=== PATIENT | female | born 1935 | race Caucasian/White ===

== ENCOUNTER → 2019-05-02 | Outpatient (CLI) | payer MEDICARE | END | disposition home or self-care (01) | LOC: LAB 08:54 → LAB SHORT 08:54 | DX: N39.0 Urinary tract infection, site not specified (principal) | CPT/HCPCS: 87077; 87086; 87186 ==

== ENCOUNTER 2023-04-28 06:39 | Day surgery (SDC) | payer MEDICARE, OTHER ==
[~2023-04-28] VITALS: Ht 152.4 cm; Wt 97.0 kg
[2023-04-28] VITALS (7 sets, daily range): BP systolic 134–173; BP diastolic 74–84
[~2023-04-28 06:39] MED LIST: AMIT50 PO; ASPIR 8181 M1 PO; B-12500 MC2 PO; CENTRUM SILVER1 EAC2 PO; CIPR500 PO; Cipro500 MG PO; DONEPEZIL HCL10 MG; Flagyl500 MG PO; Gas-X125 MG PO; Hydroxyzine HCl50 MG PO; LEVO-T50 MCG PO; LIDO700A20 TOP; LOSA50 PO; MELO7.5 PO; MEMA5TAB PO; METR500 PO; MOTION RELIEF25 MG PO; NAPR220 PO; OMEP20ER PO; PRAV20 PO; PRAVASTATIN SOD40 MG PO; Pravastatin Sod80 MG PO; Primidone50 MG PO; VITAMIN D31000 UNI1 PO; VITAMIN D5000 UNIT
[2023-04-28] MEDS ORDERED: APHEN325 M1 PO (07:22)
--- NOTE | 2023-04-28 09:12 | NUR ---
PT BACK TO RECOVERY ROOM VIA BED AFTER PROCEDURE. SLEEPING, BUT ROUSES EASILY TO VERBAL STIMULI. RIGHT RADIAL SITE WITH PRELUDE BAND AND SPLINT IN PLACE, FIRM SWELLING AND BRUISING NOTED PROXIMAL TO PRELUDE BAND. 10 MINUTES MANUAL PRESSURE HELD AND PRESSURE DRESSING PLACED PROXIMAL TO PRELUDE BAND. PT DENIES DISCOMFORT AT THE SITE.
--- NOTE | 2023-04-28 09:44 | NUR ---
PT CONTINUES TO SLEEP, RIGHT WRIST IS NOW SOFT TO PALPATION AFTER PRESSURE DRESSING AND MANUAL PRESSURE TO SITE. PRESSURE DRESSING REAPPLIED TO PREVENT FURTHER SWELLING, WILL LEAVE IN PLACE UNTIL PT DC HOME.
--- NOTE | 2023-04-28 10:16 | NUR ---
RIGHT RADIAL PRELUDE BAND HAS BEEN FULLY DEFLATED. SITE CONTINUES TO HAVE SOFT SWELLING AND BRUISING PROXIMAL TO BAND, BUT DENIES PAIN TO THE AREA. CALL LIGHT IN REACH, DAUGHTER REMAINS AT BEDSIDE.
--- NOTE | 2023-04-28 10:34 | NUR ---
DR DOWNING AT BEDSIDE SPEAKING WITH PT AND FAMILY ABOUT ANGIOGRAM RESULTS AND PLAN OF CARE.
--- NOTE | 2023-04-28 11:25 | NUR ---
IV DC'D, CATH INTACT. PT AND DAUGHTER GIVEN DC INSTRUCTIONS AND FOLLOW UP INFO, VERBALIZED UNDERSTANDING. RIGHT RADIAL SITE WITH CLOTH DOT DRESSING AND SPLINT IN PLACE, SOME SOFT SWELLING AND BRUISING PRESENT, PT DENIES ANY DISCOMFORT TO THE AREA. OUT TO CAR VIA WHEELCHAIR, ACCOMPANIED BY DAUGHTER.
== END 2023-04-28 11:15 | disposition home or self-care (01) ==
LOC: MHTC 06:39
PROC: B2111ZZ Fluoroscopy of Multiple Coronary Arteries using Low Osmolar Contrast (ICD-10-PCS; principal; 2023-04-28)
DX: I35.0 Nonrheumatic aortic (valve) stenosis (principal); I25.10 Atherosclerotic heart disease of native coronary artery without angina pectoris; I25.2 Old myocardial infarction; I10 Essential (primary) hypertension; E78.5 Hyperlipidemia, unspecified; E11.9 Type 2 diabetes mellitus without complications; E03.9 Hypothyroidism, unspecified; F03.90 Unspecified dementia, unspecified severity, without behavioral disturbance, psychotic disturbance, mood disturbance, and anxiety; Z86.73 Personal history of transient ischemic attack (TIA), and cerebral infarction without residual deficits; Z88.6 Allergy status to analgesic agent; Z88.1 Allergy status to other antibiotic agents; Z79.82 Long term (current) use of aspirin; Z79.890 Hormone replacement therapy; Z79.899 Other long term (current) drug therapy
CPT/HCPCS: 76937; 93454; 99152; C1769; C1887; C1894; J1644; J2250; J3010; J7030; J7050; Q9967

== ENCOUNTER 2023-08-10 11:15 | Emergency (ER) | payer MEDICARE, OTHER ==
[~2023-08-10] VITALS: Ht 165.1 cm; Wt 99.8 kg
[~2023-08-10 11:15] MED LIST changes: +APHEN325 M1 PO
[2023-08-10 11:40] LABS: Calcium, Ionized (POC) 1.14 mmol/L (1.10-1.46); Chloride (POC) 104 mmol/L (98-108); Creatinine (POC) 0.6 mg/dL (0.6-1.0); Glucose (ISTAT POC) 207 mg/dL (70-99); Hemoglobin (POC) 11.6 g/dL (12.0-16.0); Potassium (POC) 4.2 mmol/L (3.5-5.5); Sodium (POC) 136 mmol/L (135-148); Total CO2 (POC) 22 mmol/L (21-32)
[2023-08-10 12:08] LABS: Albumin, Blood 3.3 g/dL (3.4-5.0); Bilirubin, Total 0.4 mg/dL (0.1-1.0); Bun/Creatinine Ratio 21.8 (12.0-20.0); Calcium, Blood 8.9 mg/dL (8.5-10.1); Creatinine, Blood 0.64 mg/dL (0.40-1.00); Globulin, Blood 3.4 g/dL (2.2-4.0); Potassium, Blood 4.1 mmol/L (3.5-5.5); Total Protein, Blood 6.7 g/dL (6.4-8.2)
[2023-08-10 12:14] LABS: BASOPHILS ABSOLUTE AUTO 0.04 K/mm3 (0.00-0.23); BASOPHILS PERCENT AUTO 1 % (0-2); EOSINOPHILS ABSOLUTE AUTO 0.17 K/mm3 (0.00-0.68); EOSINOPHILS PERCENT AUTO 2 % (0-6); Hematocrit 34.3 % (33.0-51.0); Hemoglobin 11.3 g/dL (11.5-16.0); IMMATURE GRAN ABSOLUTE AUTO 0.03 K/mm3 (0.00-0.10); IMMATURE GRAN PERCENT AUTO 0 % (0-1); LYMPHOCYTES ABSOLUTE AUTO 2.56 K/mm3 (0.84-5.20); LYMPHOCYTES PERCENT AUTO 35 % (21-46); MONOCYTES ABSOLUTE AUTO 0.58 K/mm3 (0.16-1.47); MONOCYTES PERCENT AUTO 8 % (4-13); Mean Corpuscular HGB 33.4 pg (26.0-34.0); Mean Corpuscular HGB Conc 32.9 g/dL (31.5-36.5); Mean Corpuscular Volume 102 fL (80-100); Mean Platelet Volume 9.1 fL (9.1-12.4); NEUTROPHILS ABSOLUTE AUTO 3.85 K/mm3 (1.96-9.15); NEUTROPHILS PERCENT AUTO 53 % (41-73); Platelet Count 193 K/mm3 (150-400); RDW Coefficient Variation 12.9 % (11.7-14.2); RDW Standard Deviation 47.9 fL (35.1-46.3); Red Blood Cell Count 3.38 M/mm3 (3.80-5.20); White Blood Cell Count 7.23 K/mm3 (4.00-11.30)
[2023-08-10 13:00] VITALS: BP 149/62
[2023-08-11 18:20] LABS: Calcium, Ionized (POC) 1.02 mmol/L (1.10-1.46); Chloride (POC) 109 mmol/L (98-108); Creatinine (POC) 1.3 mg/dL (0.6-1.0); Glucose (ISTAT POC) 106 mg/dL (70-99); Hemoglobin (POC) 8.5 g/dL (12.0-16.0); Potassium (POC) 4.2 mmol/L (3.5-5.5); Total CO2 (POC) 27 mmol/L (21-32)
[2023-08-15 11:47] LABS: Sodium (POC) 139 mmol/L (135-148)
== END 2023-08-10 14:07 | disposition short-term general hospital (02) ==
LOC: ER 11:15
PROVIDERS: Emergency Medicine
DX: I44.2 Atrioventricular block, complete (principal); Z88.8 Allergy status to other drugs, medicaments and biological substances; Z87.891 Personal history of nicotine dependence; Z79.82 Long term (current) use of aspirin; Z79.1 Long term (current) use of non-steroidal anti-inflammatories (NSAID); Z79.899 Other long term (current) drug therapy
CPT/HCPCS: 33210; 36556; 71045; 80047; 80053; 82947; 84484; 85014; 85025; 93005; 93010; 99291-25; 99292; C1751

== ENCOUNTER 2023-12-23 21:22 | Observation (INO) | payer MEDICARE, OTHER ==
[~2023-12-23] VITALS: Ht 157.5 cm; Wt 97.7 kg
[~2023-12-23 21:22] MED LIST changes: -DONEPEZIL HCL10 MG; +DONEPEZIL HCL10 MG PO
[2023-12-23] MEDS ORDERED: Ondansetron HCl 2 MG / ML 2ML Vial IV ONE (22:15)
[2023-12-23 22:19] LABS: Influenza A, PCR NEGATIVE (NEGATIVE); Influenza B, PCR NEGATIVE (NEGATIVE); Resp Syncytial Virus, PCR NEGATIVE (NEGATIVE)
[2023-12-23 22:23] LABS: BASOPHILS ABSOLUTE AUTO 0.04 K/mm3 (0.00-0.23); BASOPHILS PERCENT AUTO 1 % (0-2); EOSINOPHILS ABSOLUTE AUTO 0.14 K/mm3 (0.00-0.68); EOSINOPHILS PERCENT AUTO 2 % (0-6); Hematocrit 34.6 % (33.0-51.0); IMMATURE GRAN ABSOLUTE AUTO 0.03 K/mm3 (0.00-0.10); IMMATURE GRAN PERCENT AUTO 0 % (0-1); LYMPHOCYTES PERCENT AUTO 12 % (21-46); MONOCYTES ABSOLUTE AUTO 0.58 K/mm3 (0.16-1.47); MONOCYTES PERCENT AUTO 7 % (4-13); Mean Corpuscular HGB 34.3 pg (26.0-34.0); Mean Corpuscular HGB Conc 34.7 g/dL (31.5-36.5); Mean Corpuscular Volume 99 fL (80-100); Mean Platelet Volume 9.7 fL (9.1-12.4); NEUTROPHILS PERCENT AUTO 79 % (41-73); Platelet Count 198 K/mm3 (150-400); RDW Coefficient Variation 13.6 % (11.7-14.2); RDW Standard Deviation 49.2 fL (35.1-46.3); White Blood Cell Count 8.69 K/mm3 (4.00-11.30)
[2023-12-23 22:51] LABS: Albumin, Blood 3.7 g/dL (3.4-5.0); Albumin/Globulin Ratio 1.1 (0.8-1.8); Bilirubin, Total 0.7 mg/dL (0.1-1.0); Bun/Creatinine Ratio 14.5 (12.0-20.0); Calcium, Blood 8.8 mg/dL (8.5-10.1); Creatinine, Blood 0.83 mg/dL (0.40-1.00); Globulin, Blood 3.4 g/dL (2.2-4.0); Potassium, Blood 4.3 mmol/L (3.5-5.5); Total Protein, Blood 7.1 g/dL (6.4-8.2)
[2023-12-23] MEDS ORDERED: VALS80 PO (23:03)
[2023-12-23] MEDS ORDERED: Carvedilol12.5 MG PO (23:04)
[2023-12-23] MEDS ORDERED: CENTRUM SILVER1 EAC2 PO (23:08)
[2023-12-23] MEDS ORDERED: B-12500 MC2 PO (23:09)
[2023-12-23] MEDS ORDERED: Alphagan P5 ML BOTHEYES (23:10)
[2023-12-23] MEDS ORDERED: KETO15TC TOP (23:10)
[2023-12-24 00:10] LABS: SARS-Cov-2 (COVID-19) PCR, MMC POSITIVE (NEGATIVE)
[2023-12-24] MEDS ORDERED: Melatonin 3 MG Tab PO PRN (02:10)
[2023-12-24] MEDS ORDERED: Albuterol 2.5 MG/3 ML VIAL INH PRN (02:15)
[2023-12-24] MEDS ORDERED: Guaifenesin/Dextromethorphan Syrup 5 ML UDC PO PRN (02:15)
[2023-12-24] MEDS ORDERED: Acetaminophen 325 MG TABLET PO PRN (02:15)
[2023-12-24] MEDS ORDERED: Ondansetron HCl 2 MG / ML 2ML Vial IV PRN (02:15)
[2023-12-24] MEDS ORDERED: Remdesivir (EUA) 200 MG in NS 250 ML IV ONE (02:50)
[2023-12-24 03:52] VITALS: BP 115/52
--- NOTE | 2023-12-24 05:01 | NUR ---
NOC SUMMARY- PT ARRIVED TO ROOM IN NO DISTRESS. PT IS BREATHING EASY ON RA. CONTINOUS SPO2 IS ON PT. SPO2 >90%. PT DENIES SOB OR CX PAIN. PT MEDICATED FOR COUGH. PT INCONTINENT W/ BRIEF ON. PT AOX2, PT FORGETFUL. CALL LIGHT IN REACH AND BED ALARM ON.
[2023-12-24 05:33] LABS: BASOPHILS ABSOLUTE AUTO 0.03 K/mm3 (0.00-0.23); BASOPHILS PERCENT AUTO 0 % (0-2); EOSINOPHILS ABSOLUTE AUTO 0.04 K/mm3 (0.00-0.68); EOSINOPHILS PERCENT AUTO 1 % (0-6); Hematocrit 32.7 % (33.0-51.0); Hemoglobin 10.8 g/dL (11.5-16.0); IMMATURE GRAN ABSOLUTE AUTO 0.03 K/mm3 (0.00-0.10); IMMATURE GRAN PERCENT AUTO 0 % (0-1); LYMPHOCYTES ABSOLUTE AUTO 1.27 K/mm3 (0.84-5.20); LYMPHOCYTES PERCENT AUTO 18 % (21-46); MONOCYTES ABSOLUTE AUTO 0.39 K/mm3 (0.16-1.47); MONOCYTES PERCENT AUTO 6 % (4-13); Mean Corpuscular Volume 103 fL (80-100); Mean Platelet Volume 9.5 fL (9.1-12.4); NEUTROPHILS ABSOLUTE AUTO 5.23 K/mm3 (1.96-9.15); NEUTROPHILS PERCENT AUTO 75 % (41-73); Platelet Count 165 K/mm3 (150-400); RDW Coefficient Variation 13.7 % (11.7-14.2); RDW Standard Deviation 52.5 fL (35.1-46.3); Red Blood Cell Count 3.18 M/mm3 (3.80-5.20); White Blood Cell Count 6.99 K/mm3 (4.00-11.30)
[2023-12-24 05:40] LABS: Albumin, Blood 3.1 g/dL (3.4-5.0); Bilirubin, Total 0.6 mg/dL (0.1-1.0); Bun/Creatinine Ratio 13.6 (12.0-20.0); Calcium, Blood 8.3 mg/dL (8.5-10.1); Creatinine, Blood 0.95 mg/dL (0.40-1.00); Potassium, Blood 4.6 mmol/L (3.5-5.5); Total Protein, Blood 6.1 g/dL (6.4-8.2)
[2023-12-24] MEDS ORDERED: Omeprazole 20 MG CapCR PO SCH (06:00)
[2023-12-24] MEDS ORDERED: Levothyroxine Sodium 0.05 MG Tab PO SCH (06:00)
[2023-12-24 07:43] VITALS: BP 142/61
[2023-12-24] MEDS ORDERED: Cyanocobalamin 500 MCG Tab PO SCH (09:00)
[2023-12-24] MEDS ORDERED: Aspirin 81 MG Chew PO SCH (09:00)
[2023-12-24] MEDS ORDERED: Memantine HCL 5 MG Tab PO SCH (09:00)
[2023-12-24] MEDS ORDERED: dexAMETHasone 4 MG TAB PO SCH (09:00)
[2023-12-24] MEDS ORDERED: Enoxaparin 40 MG/0.4 ML SYR SC SCH (09:00)
[2023-12-24] MEDS ORDERED: Losartan Potassium 50 MG Tab PO SCH (09:00)
--- NOTE | 2023-12-24 09:00 | NUR ---
PT PLEASANT COOP A/O X2, SELF FAMILY, [facility]. H/R REG, NO MURMUR NOTED. PACER LUCW. DENIES PAIN, LUNGS CLEAR, RESP EASY, UNLABORED. ON R.A. BT X4 LAST BM NOT KNOWN BY PT. VOIDS INCONT. 1 ASST TO BATHROOM, GAIT BELT. NO OTHER CONCERNS NOTED. BED IN LOW POSITION, CALL LITE IN REACH, CALLS APPROP
[2023-12-24 14:58] VITALS: BP 126/59
--- NOTE | 2023-12-24 18:41 | NUR ---
pt pleasant today. continues to be some confused. continues to be on r/a. vss. moderate assistance to bathroom. 1 asst. eating dinner at this time, sitting in chair. bed in low position, call lite in reach, calls approp
[2023-12-24 19:17] VITALS: BP 128/52
[2023-12-24] MEDS ORDERED: Donepezil HCl 5 MG Tab PO SCH (21:00)
[2023-12-24] MEDS ORDERED: Pravastatin Sodium 20 MG Tab PO SCH (21:00)
[2023-12-24] MEDS ORDERED: Primidone 50 MG Tab PO SCH (21:00)
[2023-12-24] MEDS ORDERED: Amitriptyline HCl 50 MG Tab PO SCH (21:00)
[2023-12-24 23:45] VITALS: BP 138/51; BP 155/110
[2023-12-25 02:32] VITALS: BP 155/110
[2023-12-25 04:22] VITALS: BP 138/51
[2023-12-25 05:40] LABS: Bun/Creatinine Ratio 22.7 (12.0-20.0); Calcium, Blood 8.6 mg/dL (8.5-10.1); Creatinine, Blood 0.75 mg/dL (0.40-1.00); Potassium, Blood 4.4 mmol/L (3.5-5.5)
--- NOTE | 2023-12-25 05:51 | NUR ---
RUG WASHER SUMMARY PT WAS WALKING WITH HER FWW WITH THE TELESALES SUPERVISOR BACK TO HER BED AND SHE "STUMBLED" AND FELL ON HER KNEES. THE TELESALES SUPERVISOR SAYS SHE DID NOT HIT HER HEAD. PT DOESNT REALLY UNDERSTAND WHY SHE FELL OR WHAT HAPPENED. PT HAD HER NON-SKID SOCKS ON AND WAS USING HER WALKER. FULL HEAD TO TOE ASSESSMENT, FULL NEURO EXAM (NIHSS), AND VITAL SIGNS WERE ALL WNL FOR PATIENT. DR CAIN NOTIFIED. PT SAYS SHE DOESNT FEEL ANY PAIN ANYWHERE AND SHE DOESNT THINK SHE INJURED HERSELF. STAFF WILL USE A GAIT BELT FOR ALL OUT OF BED MOBILITY. UPDATED HER WHITE BOARD WITH GAIT BELT REQUIREMENT.
[2023-12-25 07:39] VITALS: BP 136/55
[2023-12-25] MEDS ORDERED: DEXT30SU PO (11:39)
[2023-12-25] MEDS ORDERED: PRED20 PO (11:39)
[2023-12-25] MEDS ORDERED: Remdesivir (EUA) 100 MG in NS 250 ML IV SCH (12:00)
--- NOTE | 2023-12-25 13:53 | NUR ---
pt discharge reviewed with pt and daughter/childcare teacher. iv pulled by luis. no tel. pt readying to d/c
--- NOTE | 2023-12-25 13:58 | NUR ---
PT WHEELED TO DOOR AT 1400
== END 2023-12-25 13:58 | disposition home health service (06) ==
LOC: ER 21:22 → ERHOLD 21:23 → MEDS 21:23
PROVIDERS: Emergency Medicine; Internal Medicine; ADMIT Student in an Organized Health Care Education/Training Program
DX: U07.1 COVID-19 (principal); J96.01 Acute respiratory failure with hypoxia; I10 Essential (primary) hypertension; R73.03 Prediabetes; I44.2 Atrioventricular block, complete; E78.5 Hyperlipidemia, unspecified; E03.9 Hypothyroidism, unspecified; Z79.890 Hormone replacement therapy; F03.90 Unspecified dementia, unspecified severity, without behavioral disturbance, psychotic disturbance, mood disturbance, and anxiety; K21.9 Gastro-esophageal reflux disease without esophagitis; Z95.0 Presence of cardiac pacemaker; Z87.891 Personal history of nicotine dependence; Z88.2 Allergy status to sulfonamides; Z79.82 Long term (current) use of aspirin; Z79.899 Other long term (current) drug therapy
CPT/HCPCS: 0241U; 36415; 71046; 71260; 80048; 80053; 83735; 83880; 84443; 84484; 85025; 85379; 93005; 93010; 94762; 96372; 96374-59; 97161; 97530; 99285-25; A9270; G0378; J0248; J1650; J2405; J7050; Q9967

== ENCOUNTER → 2024-01-26 | Outpatient (CLI) | payer MEDICARE, OTHER ==
[~2024-01-26] MED LIST changes: +Alphagan P5 ML BOTHEYES; +Carvedilol12.5 MG PO; +DEXT30SU PO; +KETO15TC TOP; +PRED20 PO; +VALS80 PO
[2024-01-26 14:58] LABS: BASOPHILS ABSOLUTE AUTO 0.02 K/mm3 (0.00-0.23); BASOPHILS PERCENT AUTO 0 % (0-2); EOSINOPHILS ABSOLUTE AUTO 0.14 K/mm3 (0.00-0.68); EOSINOPHILS PERCENT AUTO 3 % (0-6); Hematocrit 32.6 % (33.0-51.0); Hemoglobin 11.2 g/dL (11.5-16.0); IMMATURE GRAN ABSOLUTE AUTO 0.01 K/mm3 (0.00-0.10); IMMATURE GRAN PERCENT AUTO 0 % (0-1); LYMPHOCYTES ABSOLUTE AUTO 1.98 K/mm3 (0.84-5.20); LYMPHOCYTES PERCENT AUTO 39 % (21-46); MONOCYTES PERCENT AUTO 10 % (4-13); Mean Corpuscular HGB 35.1 pg (26.0-34.0); Mean Corpuscular HGB Conc 34.4 g/dL (31.5-36.5); Mean Corpuscular Volume 102 fL (80-100); Mean Platelet Volume 9.1 fL (9.1-12.4); NEUTROPHILS ABSOLUTE AUTO 2.42 K/mm3 (1.96-9.15); NEUTROPHILS PERCENT AUTO 48 % (41-73); Platelet Count 201 K/mm3 (150-400); RDW Coefficient Variation 14.1 % (11.7-14.2); RDW Standard Deviation 53.1 fL (35.1-46.3); Red Blood Cell Count 3.19 M/mm3 (3.80-5.20); White Blood Cell Count 5.07 K/mm3 (4.00-11.30)
[2024-01-26 15:15] LABS: Albumin, Blood 3.5 g/dL (3.4-5.0); Bilirubin, Total 0.6 mg/dL (0.1-1.0); Calcium, Blood 8.9 mg/dL (8.5-10.1); Creatinine, Blood 0.93 mg/dL (0.40-1.00); Globulin, Blood 3.4 g/dL (2.2-4.0); Potassium, Blood 4.2 mmol/L (3.5-5.5); Total Protein, Blood 6.9 g/dL (6.4-8.2)
== END | disposition home or self-care (01) ==
LOC: LAB 14:53 → LAB SHORT 14:53
PROVIDERS: Chiropractor
DX: R07.9 Chest pain, unspecified (principal)
CPT/HCPCS: 80053; 83880; 84484; 85025; 85379

== ENCOUNTER 2024-08-08 19:31 | Emergency (ER) | payer MEDICARE, OTHER ==
[~2024-08-08] VITALS: Ht 162.6 cm; Wt 65.8 kg
[~2024-08-08 19:31] MED LIST changes: +ALBU90OI INH; +CARVEDILOL12.5 MG PO; +CARVEDILOL6.25 MG PO; +Hydrocortiso453.6 G1 TOP; +MUPIROCIN2210 TOP; +NYSTOP15 GM TOP; +OSELTAMIVIR PHO30 M1 PO; +Q-Tussin100 MG/5 M PO; +TRAZ50 PO; +VISBIOME 112.51 EACH PO
[2024-08-08] MEDS ORDERED: LORazepam 2 MG/ML 1ML Injection IV ONE (20:05)
[2024-08-08] MEDS ORDERED: Ketorolac Tromethamine 15mg Vial IV ONE (20:05)
[2024-08-08 20:21] LABS: BASOPHILS ABSOLUTE AUTO 0.02 K/mm3 (0.00-0.23); BASOPHILS PERCENT AUTO 0 % (0-2); EOSINOPHILS ABSOLUTE AUTO 0.08 K/mm3 (0.00-0.68); EOSINOPHILS PERCENT AUTO 1 % (0-6); Hematocrit 35.6 % (33.0-51.0); Hemoglobin 12.1 g/dL (11.5-16.0); IMMATURE GRAN ABSOLUTE AUTO 0.02 K/mm3 (0.00-0.10); IMMATURE GRAN PERCENT AUTO 0 % (0-1); LYMPHOCYTES ABSOLUTE AUTO 2.61 K/mm3 (0.84-5.20); LYMPHOCYTES PERCENT AUTO 40 % (21-46); MONOCYTES ABSOLUTE AUTO 0.66 K/mm3 (0.16-1.47); MONOCYTES PERCENT AUTO 10 % (4-13); Mean Corpuscular HGB 34.7 pg (26.0-34.0); Mean Corpuscular Volume 102 fL (80-100); Mean Platelet Volume 9.2 fL (9.1-12.4); NEUTROPHILS ABSOLUTE AUTO 3.22 K/mm3 (1.96-9.15); NEUTROPHILS PERCENT AUTO 49 % (41-73); Platelet Count 222 K/mm3 (150-400); RDW Coefficient Variation 13.1 % (11.7-14.2); RDW Standard Deviation 48.7 fL (35.1-46.3); Red Blood Cell Count 3.49 M/mm3 (3.80-5.20); White Blood Cell Count 6.61 K/mm3 (4.00-11.30)
[2024-08-08 20:36] LABS: Albumin, Blood 3.8 g/dL (3.4-5.0); Albumin/Globulin Ratio 1.3 (0.8-1.8); Bilirubin, Total 0.4 mg/dL (0.1-1.0); Bun/Creatinine Ratio 12.1 (12.0-20.0); Calcium, Blood 8.2 mg/dL (8.5-10.1); Creatinine, Blood 0.99 mg/dL (0.40-1.00); Globulin, Blood 2.9 g/dL (2.2-4.0); Total Protein, Blood 6.7 g/dL (6.4-8.2)
[2024-08-08 21:12] LABS: Source, Urine Clean Catch
[2024-08-08] MEDS ORDERED: VALSARTAN40 MG PO (21:25)
[2024-08-08] MEDS ORDERED: REXULTI2 MG PO (21:25)
[2024-08-08] MEDS ORDERED: DOXEPIN HCL6 MG PO (21:26)
[2024-08-08] MEDS ORDERED: NEBIVOLOL HCL5 MG PO (21:28)
[2024-08-08 21:30] LABS: Appearance, Urine Hazy (Clear); Bilirubin, Urine Neg (Neg); Blood, Urine 1+ (Neg); Color, Urine Yellow (P-Yellow); Glucose Qualitative, Urine Neg (Neg); Ketones, Urine Neg (Neg); Leukocyte Esterase, Urine 1+ (Neg); Nitrite, Urine Pos (Neg); Protein, Urine 1+ (Neg); Urobilinogen, Urine NORM (Normal)
[2024-08-08 21:42] LABS: Bacteria Many /hpf; Mucus Light (0-Heavy); Squamous Epithelial Cells Many /hpf (Few); Transitional Epithelial Cells Rare /hpf (0-Rare)
[2024-08-08] MEDS ORDERED: MACRODANTIN100 M1 PO (21:54)
[2024-08-08] MEDS ORDERED: Nitrofurantoin/Nitrofuran Mac 100 MG Cap PO ONE (21:55)
[2024-08-08 22:10] VITALS: BP 168/86
== END 2024-08-08 22:08 | disposition home or self-care (01) ==
LOC: ER 19:31
PROVIDERS: Student in an Organized Health Care Education/Training Program
DX: F41.9 Anxiety disorder, unspecified (principal); N39.0 Urinary tract infection, site not specified; Z79.899 Other long term (current) drug therapy; Z79.890 Hormone replacement therapy; Z79.82 Long term (current) use of aspirin; Z88.2 Allergy status to sulfonamides; Z88.8 Allergy status to other drugs, medicaments and biological substances; Z91.09 Other allergy status, other than to drugs and biological substances; Z79.52 Long term (current) use of systemic steroids; Z95.2 Presence of prosthetic heart valve; Z95.0 Presence of cardiac pacemaker; Z87.891 Personal history of nicotine dependence
CPT/HCPCS: 51701; 71046; 80053; 81001; 83690; 84484; 85025; 87077; 87086; 87186; 93005; 93010; 96374; 96375; 99284-25; A9270; J1885; J2060

== ENCOUNTER 2024-08-12 10:43 | Emergency (ER) | payer MEDICARE, OTHER ==
[~2024-08-12] VITALS: Ht 157.5 cm; Wt 94.8 kg
[~2024-08-12 10:43] MED LIST changes: +DOXEPIN HCL6 MG PO; +MACRODANTIN100 M1 PO; +NEBIVOLOL HCL5 MG PO; +REXULTI2 MG PO; +VALSARTAN40 MG PO
[2024-08-12 10:49] VITALS: BP 163/69
[2024-08-12] MEDS ORDERED: DiphenhydrAMINE HCl 50 MG/ML 1ML Vial IV ONE (11:50)
[2024-08-12 12:32] LABS: Source, Urine Clean Catch
[2024-08-12 12:38] LABS: Appearance, Urine Clear (Clear); Bilirubin, Urine Neg (Neg); Blood, Urine Neg (Neg); Color, Urine Yellow (P-Yellow); Glucose Qualitative, Urine Neg (Neg); Ketones, Urine 3+ (Neg); Leukocyte Esterase, Urine 1+ (Neg); Nitrite, Urine Neg (Neg); Protein, Urine Neg (Neg); Specific Gravity, Urine 1.015 (1.003-1.022); Urobilinogen, Urine NORM (Normal)
[2024-08-12 12:47] LABS: Bacteria Few /hpf; Red Blood Cells, Urine Not Seen /hpf (0-2); Squamous Epithelial Cells Few /hpf (Few)
[2024-08-12 12:54] LABS: U Amphetamine Screen Not Detected; U Barbituate Screen DETECTED; U Benzodiazapine Screen Not Detected; U Buprenorphine Screen Not Detected; U Cannabinoids Screen DETECTED; U Cocaine Screen Not Detected; U Methadone Screen Not Detected; U Methamphetamine Screen Not Detected; U Opiates Screen Not Detected; U Oxycodone Screen Not Detected; U Phencyclidine Screen Not Detected
[2024-08-12 12:55] LABS: BASOPHILS ABSOLUTE AUTO 0.02 K/mm3 (0.00-0.23); BASOPHILS PERCENT AUTO 0 % (0-2); EOSINOPHILS ABSOLUTE AUTO 0.03 K/mm3 (0.00-0.68); EOSINOPHILS PERCENT AUTO 0 % (0-6); Hematocrit 36.8 % (33.0-51.0); Hemoglobin 12.4 g/dL (11.5-16.0); IMMATURE GRAN ABSOLUTE AUTO 0.03 K/mm3 (0.00-0.10); IMMATURE GRAN PERCENT AUTO 0 % (0-1); LYMPHOCYTES PERCENT AUTO 21 % (21-46); MONOCYTES ABSOLUTE AUTO 0.54 K/mm3 (0.16-1.47); MONOCYTES PERCENT AUTO 7 % (4-13); Mean Corpuscular HGB 34.4 pg (26.0-34.0); Mean Corpuscular HGB Conc 33.7 g/dL (31.5-36.5); Mean Corpuscular Volume 102 fL (80-100); Mean Platelet Volume 8.9 fL (9.1-12.4); NEUTROPHILS ABSOLUTE AUTO 5.86 K/mm3 (1.96-9.15); NEUTROPHILS PERCENT AUTO 72 % (41-73); Platelet Count 222 K/mm3 (150-400); RDW Coefficient Variation 13.1 % (11.7-14.2); RDW Standard Deviation 49.7 fL (35.1-46.3); White Blood Cell Count 8.18 K/mm3 (4.00-11.30)
[2024-08-12 13:20] LABS: Acetaminophen, Random <2.0 ug/mL (10.0-30.0); Alanine Aminotransfer (ALT/SGP 26 U/L (12-78); Albumin/Globulin Ratio 1.3 (0.8-1.8); Alk Phos 61 U/L (50-136); Anion Gap 14 mmol/L (3-11); Aspartate Aminotrans (AST/SGOT 47 U/L (12-37); Bilirubin, Total 0.7 mg/dL (0.1-1.0); Blood Urea Nitrogen 9 mg/dL (8-24); Bun/Creatinine Ratio 13.5 (12.0-20.0); CO2, Blood 24 mmol/L (21-32); Chloride, Blood 105 mmol/L (98-108); Creatinine, Blood 0.67 mg/dL (0.40-1.00); Ethanol (Alcohol), Blood, Med <3 mg/dL; Globulin, Blood 3.1 g/dL (2.2-4.0); Glomerular Filtration Rate 84 (60-); Glucose, Blood 107 mg/dL (70-99); Potassium, Blood 3.8 mmol/L (3.5-5.5); Salicylate <1.7 mg/dL (2.8-20.0); Sodium, Blood 139 mmol/L (136-145); Total Protein, Blood 7.1 g/dL (6.4-8.2)
[2024-08-12] MEDS ORDERED: Benztropine Mesylate 1 MG/ML 2ML Amp IV ONE (14:10)
[2024-08-12] MEDS ORDERED: BENADRYL25 M1 PO (15:30)
[2024-08-12] MEDS ORDERED: BENZ2 PO (15:30)
== END 2024-08-12 15:40 | disposition home or self-care (01) ==
LOC: ER 10:43
PROVIDERS: Physician Assistant
DX: G24.01 Drug induced subacute dyskinesia (principal); T43.505A Adverse effect of unspecified antipsychotics and neuroleptics, initial encounter; F03.90 Unspecified dementia, unspecified severity, without behavioral disturbance, psychotic disturbance, mood disturbance, and anxiety; Z88.2 Allergy status to sulfonamides; Z88.8 Allergy status to other drugs, medicaments and biological substances; Z91.09 Other allergy status, other than to drugs and biological substances; Z79.890 Hormone replacement therapy; Z79.899 Other long term (current) drug therapy; Z79.82 Long term (current) use of aspirin; Z95.2 Presence of prosthetic heart valve; Z95.0 Presence of cardiac pacemaker; Z87.891 Personal history of nicotine dependence
CPT/HCPCS: 80053; 80320; 81001; 85025; 87086; 96374; 96375; 99284-25; G0480; J0515; J1200